=== PATIENT | male | born 1995 | race Two or more races ===

== ENCOUNTER 2021-12-03 16:42 | Emergency (ER) | payer BC, OTHER ==
[~2021-12-03] VITALS: Ht 177.8 cm; Wt 101.4 kg
[2021-12-03 17:04] VITALS: BP 127/99
[2021-12-03] MEDS ORDERED: IBUP800T27 PO (17:33)
[2021-12-03] MEDS ORDERED: CEPH-509 PO (17:33)
== END 2021-12-03 17:54 | disposition home or self-care (01) ==
LOC: ER 16:42
DX: S99.921A Unspecified injury of right foot, initial encounter (principal); F17.210 Nicotine dependence, cigarettes, uncomplicated; W22.8XXA Striking against or struck by other objects, initial encounter; Y93.89 Activity, other specified; Y92.89 Other specified places as the place of occurrence of the external cause; Y99.8 Other external cause status
CPT/HCPCS: 11730

== ENCOUNTER 2022-07-24 23:25 | Emergency (ER) | payer BC ==
[~2022-07-24 23:25] MED LIST: CEPH-509 PO; IBUP800T27 PO
== END 2022-07-25 00:10 | disposition left against medical advice (07) ==
LOC: ER 23:25
DX: Z00.00 Encounter for general adult medical examination without abnormal findings (principal); Z53.21 Procedure and treatment not carried out due to patient leaving prior to being seen by health care provider